=== PATIENT | female | born 1975 | race Caucasian/White ===

== ENCOUNTER 2019-08-12 20:47 | Emergency (ER) | payer BC, OTHER ==
[2019-08-12 20:55] VITALS: TEMP 97.8
[2019-08-12] MEDS ORDERED: SODIUM CHLORIDE 0.9% 1,000 ML IV STA (21:20)
[2019-08-12] MEDS ORDERED: FAMOTIDINE 20 MG/2 ML VIAL IV STA (21:21)
[2019-08-12] MEDS ORDERED: MAG HYDROX/AL HYDROX/SIMETH 30 ML, HYOSCYAMINE ELIXIR 10 ML, LIDOCAINE VISCOUS 2% 10 ML PO STA ×3 (21:21)
[2019-08-12 21:39] VITALS: BP 115/78; PULSE 90; RESP 16
--- NOTE | 2019-08-12 21:48 | ED ---
General Adult HPI - General Chief complaint: Abdominal Pain Stated complaint: Abd pain Time Seen by Provider: 08/12/19 20:59 Source: patient, RN notes reviewed Mode of arrival: ambulatory Limitations: no limitations - History of Present Illness Initial comments: 43-year-old female without a significant past medical history presents to the emergency department for a chief complaint of epigastric pain. Patient states this has been ongoing for 3 days. Patient states this pain has been intermittent on and off for several years. States that she had an ultrasound of her gallbladder one time that showed gallstones. States that over the past 3 days the pain has been intermittent but worse than normal. States that eating seems to worsen this pain so she has not had much to eat. Patient admits to nausea intermittently but denies vomiting. States bowel movements have been normal with the last bowel movement being yesterday. Denies fevers or chi lls.Patient has no other complaints at this time including shortness of breath, chest pain, nausea or vomiting, headache, or visual changes. - Related Data Previous Rx's Medication Instructions Recorded Pantoprazole Sodium [Protonix] 40 mg PO DAILY #14 tablet. 08/12/19 Allergies Allergy/AdvReac Type Severity Reaction Status Date / Time No Known Allergies Allergy Verified 08/12/19 20:55 Review of Systems ROS Statement: Those systems with pertinent positive or pertinent negative responses have been documented in the HPI. ROS Other: All systems not noted in ROS Statement are negative. Past Medical History Past Medical History: No Reported History History of Any Multi-Drug Resistant Organisms: None Reported Past Surgical History: Section, Hysterectomy Past Psychological History: No Psychological Hx Reported Smoking Status: Never smoker Past Alcohol Use History: None Reported Past Drug Use History: None Reported General Exam Limitations: no limitations General appearance: alert, in no apparent distress Head exam: Present: atraumatic, normocephalic, normal inspection Eye exam: Present: normal appearance, PERRL, EOMI. Absent: scleral icterus, conjunctival injection, periorbital swelling ENT exam: Present: normal exam, mucous membranes moist Neck exam: Present: normal inspection, full ROM. Absent: tenderness, meningismus, lymphadenopathy Respiratory exam: Present: normal lung sounds bilaterally. Absent: respiratory distress, wheezes, rales, rhonchi, stridor Cardiovascular Exam: Present: regular rate, normal rhythm, normal heart sounds. Absent: systolic murmur, diastolic murmur, rubs, gallop, clicks GI/Abdominal exam: Present: soft, tenderness (mild tenderness in the epigastric area. No right upper quadrant tenderness. Negative Givens sign. No lower abdominal tenderness.), normal bowel sounds. Absent: distended, guarding, rebound, rigid Neurological exam: Present: alert Course Vital Signs 08/12/19 08/12/19 20:52 21:38 Temperature 97.8 F Pulse Rate 95 90 Respiratory 17 16 Rate Blood Pressure 125/82 115/78 O2 Sat by Pulse 97 96 Oximetry EKG Findings - EKG Comments: EKG Findings:: Normal sinus rhythm, ventricular rate 95, AZ interval 136, QTc 467 Medical Decision Making - Medical Decision Making Vitals are stable. Abdominal exam reveals mild epigastric tenderness without guarding or rebound. Abdomen is soft. No right upper quadrant tenderness, negative Givens sign. CBC CMP unremarkable. Bilirubin, or enzymes, amylase and lipase are all within normal limits. XR KUB shows no significant abnormalities evident. EKG is unremarkable. Troponin is negative. Given that symptoms have been ongoing for at least 3 days it would be expected for troponin to be elevated if cardiac source. Patient was given GI cocktail and Pepcid. She was reevaluated and had significant improvement in pain after these medications. Case was discussed in detail with Dr. Barnes. Patient will follow up with primary care and GI. She will be given prescription for Protonix. I did recommend she returns if she has any worsening symptoms that she does agree to do. - Lab Data Result diagrams: 08/12/19 21:30 08/12/19 21:30 Lab Results 08/12/19 08/12/19 08/12/19 Range/Units 21:30 21:30 21:30 WBC 9.0 (3.8-10.6) k/uL RBC 4.80 (3.80-5.40) m/uL Hgb 14.3 (11.4-16.0) gm/dL Hct 42.2 (34.0-46.0) % MCV 87.9 (80.0-100.0) fL MCH 29.9 (25.0-35.0) pg MCHC 34.0 (31.0-37.0) g/dL RDW 13.0 (11.5-15.5) % Plt Count 308 (150-450) k/uL Neutrophils % 68 % Lymphocytes % 23 % Monocytes % 4 % Eosinophils % 4 % Basophils % 1 % Neutrophils # 6.2 (1.3-7.7) k/uL Lymphocytes # 2.1 (1.0-4.8) k/uL Monocytes # 0.3 (0-1.0) k/uL Eosinophils # 0.3 (0-0.7) k/uL Basophils # 0.1 (0-0.2) k/uL Sodium 138 (137-145) mmol/L Potassium 4.5 (3.5-5.1) mmol/L Chloride 106 (98-107) mmol/L Carbon Dioxide 24 (22-30) mmol/L Anion Gap 8 mmol/L BUN 12 (7-17) mg/dL Creatinine 0.73 (0.52-1.04) mg/dL Est GFR (CKD-EPI)AfAm >90 (>60 ml/min/1.73 sqM) Est GFR (CKD-EPI)NonAf >90 (>60 ml/min/1.73 sqM) Glucose 110 H (74-99) mg/dL Calcium 9.9 (8.4-10.2) mg/dL Total Bilirubin 0.6 (0.2-1.3) mg/dL AST 33 (14-36) U/L ALT 29 (4-34) U/L Alkaline Phosphatase 106 (38-126) U/L Troponin I <0.012 (0.000-0.034) ng/mL Total Protein 7.6 (6.3-8.2) g/dL Albumin 4.4 (3.5-5.0) g/dL Amylase 62 (30-110) U/L Lipase 55 (23-300) U/L Disposition Clinical Impression: Abdominal pain Disposition: HOME SELF-CARE Condition: Good Instructions (If sedation given, give patient instructions): Abdominal Pain (ED) Additional Instructions: Please take the prescription as directed. Try to avoid irritating or spicy foods. Follow-up with primary care and GI in 1-2 days. Return to the emergency department if you have any worsening symptoms. Prescriptions: Pantoprazole Sodium [Protonix] 40 mg PO DAILY #14 tablet.dr Is patient prescribed a controlled substance at d/c from ED?: No Referrals: Linn Marshall MD [Primary Care Provider] - 1-2 days Time of Disposition: 22:40
[2019-08-12 21:57] LABS: Basophils # (A) 0.1 k/uL (0-0.2); Basophils % (A) 1 %; Eosinophils # (A) 0.3 k/uL (0-0.7); Eosinophils % (A) 4 %; HCT 42.2 % (34.0-46.0); HGB 14.3 gm/dL (11.4-16.0); Lymphocytes # (A) 2.1 k/uL (1.0-4.8); Lymphocytes % (A) 23 %; MCH 29.9 pg (25.0-35.0); MCV 87.9 fL (80.0-100.0); Mean Platelet Volume 9.3; Monocytes # (A) 0.3 k/uL (0-1.0); Monocytes % (A) 4 %; Neutrophils # (A) 6.2 k/uL (1.3-7.7); Neutrophils % (A) 68 %; Platelet Count 308 k/uL (150-450)
[2019-08-12 21:58] LABS: ALT 29 U/L (4-34); AST 33 U/L (14-36); African American GFR (CKD) >90 (>60 ml/min/1.73 sqM); Albumin 4.4 g/dL (3.5-5.0); Alkaline Phosphatase 106 U/L (38-126); Amylase 62 U/L (30-110); Anion Gap 8 mmol/L; Blood Urea Nitrogen 12 mg/dL (7-17); Calcium 9.9 mg/dL (8.4-10.2); Carbon Dioxide 24 mmol/L (22-30); Chloride 106 mmol/L (98-107); Glucose 110 mg/dL (74-99); Non-African American GFR(CKD) >90 (>60 ml/min/1.73 sqM); Potassium 4.5 mmol/L (3.5-5.1); Sodium 138 mmol/L (137-145); Total Bilirubin 0.6 mg/dL (0.2-1.3); Total Protein 7.6 g/dL (6.3-8.2)
--- NOTE | 2019-08-12 21:58 | XR ---
KUB HISTORY: Epigastric pain and nausea Frontal KUB and 2 images There is no evident bowel obstruction or pneumoperitoneum. Lung bases are clear. No pathologic calcif ication. Bone mineralization is normal. IMPRESSION: No significant abnormalities evident.
== END 2019-08-12 22:50 | disposition home or self-care (01) ==
LOC: EC 20:47
DX: R10.13 Epigastric pain (principal); R11.0 Nausea
CPT/HCPCS: 36415; 74018; 80053; 82150; 83690; 84484; 85025; 93005; 96361; 96374; 99284

== ENCOUNTER → 2020-08-13 | Outpatient (CLI) | payer BC ==
--- NOTE | 2020-08-13 11:11 | MM ---
Reason for exam: screening (asymptomatic). Last mammogram was performed 5 years and 1 month ago. History: Family history of breast cancer in mother at age 50. Physical Findings: A clinical breast exam by your physician is recommended on an annual basis and results should be correlated with mammographic findings. MG Screening Mammo w CAD Bilateral CC and MLO view(s) were taken. Prior study comparison: July 24, 2015, bilateral MG 3d screening mammo w/cad. There are scattered fibroglandular densities. No significant changes when compared with prior studies. ASSESSMENT: Benign, BI-RAD 2 RECOMMENDATION: Routine screening mammogram of both breasts in 1 year.
== END | disposition home or self-care (01) ==
LOC: RADMAMWWP 07:04
PROVIDERS: ATTEND Obstetrics & Gynecology
DX: Z12.31 Encounter for screening mammogram for malignant neoplasm of breast (principal)
CPT/HCPCS: 77067

== ENCOUNTER 2022-05-06 15:34 | Emergency (ER) | payer OTHER, BC ==
[2022-05-06 15:42] VITALS: BP 115/79; PULSE 83; RESP 16; TEMP 97.8
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
--- NOTE | 2022-05-06 16:45 | XR ---
EXAMINATION TYPE: XR ankle complete RT DATE OF EXAM: 05/06/2022 COMPARISON: NONE HISTORY: Ankle swelling TECHNIQUE: 3 views FINDINGS: There is plantar and Achilles calcaneal spurring. There is minor spurring at the talonavicu lar joint. No fracture seen. Ankle mortise is anatomic. There is mild soft tissue swelling over the l ateral malleolus. IMPRESSION: Calcaneal spurring. No fracture seen.
--- NOTE | 2022-05-06 17:05 | XR ---
EXAMINATION TYPE: XR cervical spine comp DATE OF EXAM: 05/06/2022 COMPARISON: NONE HISTORY: Neck pain TECHNIQUE: 6 views FINDINGS: Cervical vertebra have normal alignment. Disc spaces are fairly normal. There is minor spur ring anteriorly at C5-6. The neural foramina are widely patent. Atlantoaxial facet joint is normal. T here are no cervical ribs. IMPRESSION: Minor degenerative spurring in the cervical spine. No fracture.
--- NOTE | 2022-05-06 17:06 | XR ---
EXAMINATION TYPE: XR shoulder complete LT DATE OF EXAM: 05/06/2022 COMPARISON: NONE HISTORY: Pain TECHNIQUE: 3 views FINDINGS: There is no sign of fracture nor dislocation. Joint spaces are normal. Glenohumeral joint i s intact. Left upper ribs appear intact. IMPRESSION: Normal left shoulder exam.
--- NOTE | 2022-05-06 18:07 | XR ---
EXAMINATION TYPE: XR foot complete RT DATE OF EXAM: 05/06/2022 COMPARISON: NONE HISTORY: Swelling and pain TECHNIQUE: 3 view FINDINGS: Metatarsals appear intact. Toes are intact. There is plantar and Achilles calcaneal spurrin g. I see no fracture nor dislocation. There are no erosions. IMPRESSION: Calcaneal spurring. No fracture seen.
== END 2022-05-06 18:34 | disposition home or self-care (01) ==
LOC: EC 15:34
DX: S16.1XXA Strain of muscle, fascia and tendon at neck level, initial encounter (principal); S96.911A Strain of unspecified muscle and tendon at ankle and foot level, right foot, initial encounter; S40.012A Contusion of left shoulder, initial encounter; V89.2XXA Person injured in unspecified motor-vehicle accident, traffic, initial encounter; Y92.481 Parking lot as the place of occurrence of the external cause
CPT/HCPCS: 72050; 99283